=== PATIENT | female | born 1980 ===

== ENCOUNTER 2017-10-21 12:22 | Emergency (ER) | payer MEDICAID ==
[2017-10-21 12:52] VITALS: BP 104/71; PULSE 70; RESP 16; TEMP 98.6; O2SAT 100
--- NOTE | 2017-10-21 13:37 | ED PDOC ---
HPI: Female Pain Time Seen by Provider: 10/21/17 12:37 Chief Complaint (Nursing): Abdominal Pain Chief Complaint (Provider): demise History Per: Patient Additional Complaint(s): 37 yo female, no PMH, sent to ED by Dr Hough for evaluation of possible demise. Patient is approximately 10 weeks , estimated by dates. OBGYN unable to find heart rate this morning via Doppler. Past Medical History Reviewed: Nursing Documentation, Vital Signs Vital Signs: Last Vital Signs Temp 98.6 F 10/21/17 12:48 Pulse 70 10/21/17 12:48 Resp 16 10/21/17 12:48 BP 104/71 10/21/17 12:48 Pulse Ox 100 10/21/17 12:48 - Medical History PMH: No Chronic Diseases - Family History Family History: States: No Known Family Hx - Living Arrangements Living Arrangements: With Family - Social History Current smoker - smoking cessation education provided: No Alcohol: None Drugs: Denies - Allergies Allergies/Adverse Reactions: Allergies Allergy/AdvReac Type Severity Reaction Status Date / Time No Known Allergies Allergy Verified 10/21/17 12:48 Review of Systems ROS Statement: Except As Marked, All Systems Reviewed And Found Negative Physical Exam - Reviewed Nursing Documentation Reviewed: Yes Vital Signs Reviewed: Yes - Physical Exam Appears: Positive for: Well, Non-toxic, No Acute Distress Head Exam: Positive for: ATRAUMATIC, NORMAL INSPECTION, NORMOCEPHALIC Skin: Positive for: Normal Color, Warm, DRY Eye Exam: Positive for: EOMI, Normal appearance, PERRL ENT: Positive for: Normal ENT Inspection Neck: Positive for: Normal, Painless ROM Cardiovascular/Chest: Positive for: Regular Rate, Rhythm Respiratory: Positive for: CNT, Normal Breath Sounds Gastrointestinal/Abdominal: Positive for: Normal Exam, Bowel Sounds, Soft Back: Positive for: Normal Inspection Extremity: Positive for: Normal ROM Neurologic/Psych: Positive for: Alert, Oriented - Laboratory Results Result Diagrams: 10/21/17 14:09 - ECG O2 Sat by Pulse Oximetry: 100 Medical Decision Making Medical Decision Making: Beta 11917 IMPRESSION: Single live intrauterine gestation with mean gestational age of 5 weeks and 6 days. The estimated date of delivery by ultrasound is 06/17/2018. Blood type pending Pt educated on US results and demonstrated full understanding. Pt asking to go home, needs to pick children up from school Case discussed with Pts OB, Dr. Hough, who agreed Pt stable for discharge at this time. Disposition - Clinical Impression Clinical Impression: Threatened - Patient ED Disposition Is Patient to be Admitted: No - Disposition Disposition: Routine/Home Disposition Time: 16:26 Condition: STABLE Instructions: Threatened Miscarriage (ED) Forms: [facility] ([place]an)
[2017-10-21 14:17] LABS: HEMOGLOBIN 13.3 g/dL (12.0-16.0); MEAN CELL VOLUME 92.5 fl (81.0-99.0); MEAN CORPUSCULAR HEMOGLOBIN 30.7 pg (27.0-31.0); MEAN CORPUSCULAR HGB CONC 33.2 g/dL (33.0-37.0); RBC 4.33 Mil/uL (3.80-5.20); WHITE BLOOD COUNT 5.8 K/uL (4.8-10.8)
[2017-10-21 15:02] LABS: SQUAMOUS EPITHIAL 7 /hpf (0-5); URINE BILIRUBIN NEGATIVE (NEGATIVE); URINE BLOOD NEGATIVE (NEGATIVE); URINE CLARITY CLOUDY (Clear); URINE COLOR YELLOW (YELLOW); URINE GLUCOSE (UA) NEG (Normal); URINE LEUKOCYTE ESTERASE NEG Leu/uL (Negative); URINE NITRATE NEGATIVE (NEGATIVE); URINE PROTEIN NEGATIVE (NEGATIVE); URINE UROBILINOGEN 0.2-1.0 mg/dL (0.2-1.0)
--- NOTE | 2017-10-21 15:29 | US ---
PROCEDURE: OB Pelvic Ultrasound HISTORY: r/o demise COMPARISON: None available. FINDINGS: UTERUS: Single Live intrauterine gestation. CRL measures 0.53 cm equivalent to 6 weeks and 2 days of gestational age. Gestational sac diameter measures 1.28 cm equivalent to 5 weeks and 3 days of gestational age. age (Ultrasound estimated): 5 weeks and 6 days Date of delivery (Ultrasound estimated) : 06/17/2018 Heart rate: 108 bpm. June-gestational hemorrhage: None. Uterus measures 11.0 x 7.5 x 6.3 cm. There is a 1.2 x 1.0 x 0.7 cm posterior wall fundal fibroid. CERVIX: Long and closed. There are nabothian cysts in the cervix. RIGHT OVARY: Measures 5.8 x 4.7 x 2.8 cm. No mass. Normal flow. There is a 2.8 x 2.3 x 2.4 cm corpus luteum cyst. LEFT OVARY: Surgically absent. FREE FLUID: None. OTHER FINDINGS: None. IMPRESSION: Single live intrauterine gestation with mean gestational age of 5 weeks and 6 days. The estimated date of delivery by ultrasound is 06/17/2018.
== END 2017-10-21 16:34 | disposition home or self-care (01) ==
LOC: H.ER 12:22
DX: O20.0 Threatened abortion (principal); Z3A.10 10 weeks gestation of pregnancy

== ENCOUNTER 2018-03-20 20:36 | Emergency (ER) | payer MEDICAID, OTHER ==
[2018-03-20 21:17] VITALS: BMI 29.6
--- NOTE | 2018-03-20 22:00 | OBHP ---
Datetime: 03/20/2018 21:40 IP Adm Impression: , intrauterine ; No Active Labor IP Chief Complaint Other: Headache IP Adm Impression Other: Headache IP Admit Plan: Observation/Evaluation; Discharge home Admit Comment, IP Provider: 37yo with IUP at 28wks EDC-06/11/2018, reports to the LND c/o epi sodes of headache with some pressure and burry vision which she experienced today. She reports that t he headche has subsided but do get occasional episodes of pressure in the eyes. She denies any previo us episodes of the above. reports that patient has been working for long hours and thinks that she is not having jas ugh rest. Pt denies any vaginal bleeding or leakage of fluid. She denies any flu symptoms or cough. Denies a ny eye symptoms. PNc with Dr Leo- uncomplicated course, O; BP-114/61, HR=65 Heart: RRR Chest : CTA B/L Abd: Soft, NT,BS- present FHR- 140s, regular with moderate variabilities TOCO: None Cervix ; closed Assessment IUP at 28weeks NST reactive Headache Plan: Patient discussed with Dr Leo on phone. Plan to d/c home. F/U with Dr Wells office on Thursday. Questions from patient answered. Pelvic Type - PN: Adequate Extremities - PN: Normal Abdomen - PN: Normal Back - PN: Normal Breast - PN: Normal Lungs - PN: Normal Heart - PN: Normal Thyroid - PN: Normal Neurologic - PN: Normal HEENT - PN: Normal General - PN: Normal FHR - Baseline A Provider: 130 Membranes, Provider: Intact Contraction Comments Provider: None Gestation - Est Wks by US: 28.0 Vital Signs Provider: Reviewed IP Chief Complaint: Other NICHD Variability Prov Fetus A: Moderate 6-25bpm NICHD Accel Fetus A IP Provider: [id number] FHR Category Provider Fetus A: Category I NICHD Decel Fetus A IP Provider: None Dilatation, Provider: 0 Genitourinary Exam: Normal DTRs - PN: Normal
[2018-03-21 12:03] VITALS: BP 102/53; PULSE 77; RESP 18; TEMP 98; O2SAT 100
== END 2018-03-20 21:45 | disposition home or self-care (01) ==
LOC: H.EROB2 20:36
DX: O26.93 Pregnancy related conditions, unspecified, third trimester (principal); R51 Headache; H53.8 Other visual disturbances; Z3A.28 28 weeks gestation of pregnancy

== ENCOUNTER 2018-06-05 11:45 | Inpatient (IN) | payer OTHER ==
[2018-06-05 12:13] VITALS: BMI 29.5
[2018-06-05] MEDS ORDERED: Lactated Ringer's 1,000 ML IV ONE (12:20)
[2018-06-05] MEDS ORDERED: Oxytocin 30 UNIT 30 UNITS/500 ML BAG IV ONE ×3 (12:22→19:39)
[2018-06-05] MEDS ORDERED: OXYTOCIN/0.9 % NS 20 UNIT/1,000 ML BAG IV ONE (12:22)
[2018-06-05] MEDS ORDERED: Penicillin G Potassium 5 MU in Sodium Chloride 0.9% 50 ML IVPB ONE (13:10)
[2018-06-05 13:15] LABS: BASO % 0.6 % (0.0-2.0); EOS # 0.1 K/uL (0.0-0.7); EOS % 0.9 % (0.0-4.0); HEMOGLOBIN 12.7 g/dL (12.0-16.0); LYMPH # 1.4 K/uL (1.0-4.3); LYMPH % 20.4 % (20.0-40.0); MEAN CELL VOLUME 93.6 fl (81.0-99.0); MEAN CORPUSCULAR HEMOGLOBIN 32.5 pg (27.0-31.0); MEAN CORPUSCULAR HGB CONC 34.7 g/dL (33.0-37.0); MEAN PLATELET VOLUME 9.7 fl (7.2-11.7); MONO # 0.5 K/uL (0.0-0.8); MONO % 7.5 % (0.0-10.0); NEUT # 4.8 K/uL (1.8-7.0); NEUT % 70.6 % (50.0-75.0); RBC 3.91 Mil/uL (3.80-5.20); RED CELL DISTRIBUTION WIDTH 13.1 % (11.5-14.5); WHITE BLOOD COUNT 6.8 K/uL (4.8-10.8)
[2018-06-05] MEDS ORDERED: Penicillin G 5 Million Unit Vial IVPB ONE (14:39)
[2018-06-05] MEDS: Lactated Ringer's 1,000 ML IV SCH (14:55)
--- NOTE | 2018-06-05 19:00 | OBADHP ---
Datetime: 06/05/2018 13:35 Admit Comment, IP Provider: 37 y/o female with IUP at 39.1 wks present to [facility] w/ c/o headac he. She had a similar episode back in March associated w/ blurry vision. Pt denies any vaginal bleedin g or leakage of fluid. Endorses movement. PNC: Dr. Hough Pmh: denies Obhx: 3NSVD, 3 abortions Famhx: noncontributory Surghx: denies HomeRx: vitamins Allergies: NKDA Gen: not in acute distress Heart: RRR, S1/S2 Chest : CTA B/L Abd: Soft, NT,BS- present FHR- 140s, regular with moderate variabilities TOCO occasional Assessment and Plan IUP at 39.1 weeks GA c/o headache NST reactive GBS+ Will admit patient for IOL Cervidil 10mg VAG CBC/type and screen Penicillin G 2.5 mu and 5.0 mu ordered Can have epidural, anesthesiology consulted Pelvic Type - PN: Adequate Extremities - PN: Normal Abdomen - PN: Normal Back - PN: Normal Breast - PN: Normal Lungs - PN: Normal Heart - PN: Normal Thyroid - PN: Normal Neurologic - PN: Normal HEENT - PN: Normal General - PN: Normal FHR - Baseline A Provider: 130 Membranes, Provider: Intact Contraction Comments Provider: irregular Gestation - Est Wks by US: 39.1 IP Hx Assessment: The History has been Reviewed and is Current Vital Signs Provider: Reviewed; Within Normal Limits IP Chief Complaint: Maternal discomfort NICHD Variability Prov Fetus A: Moderate 6-25bpm NICHD Accel Fetus A IP Provider: [id number] FHR Category Provider Fetus A: Category I NICHD Decel Fetus A IP Provider: None Dilatation, Provider: 1 Effacement, Provider: 50 Station, Provider: -2 Genitourinary Exam: Not Done DTRs - PN: Normal EGA AdmitDate IP: 39.1 IP Adm Impression: Term, intrauterine IP Admit Plan: Admit to unit; Initiate labor induction protocol Datetime: 06/05/2018 12:24 Presentation-Admit: Vertex Datetime: 03/20/2018 21:40 IP Chief Complaint Other: Headache IP Adm Impression Other: Headache
[2018-06-05] MEDS ORDERED: Fentanyl/Bupivacaine HCl 250 ML EPI ONE (20:23)
[2018-06-06] MEDS: Lactated Ringer's 1,000 ML IV SCH
[2018-06-06] MEDS ORDERED: Acetaminophen-Codeine 300/30 mg Tab PO PRN ×2 (07:54→11:35)
[2018-06-06] MEDS ORDERED: OXYTOCIN/0.9 % NS 20 UNIT/1,000 ML BAG IV ONE (07:54)
[2018-06-06] MEDS ORDERED: Oxycodone/Acetaminophen 5/325 mg Tab PO PRN ×4 (07:54→11:35)
[2018-06-06] MEDS ORDERED: Benzocaine/Menthol SPRAY TOP PRN ×2 (07:54→11:35)
--- NOTE | 2018-06-06 07:54 | OBDS ---
MATERNAL INFORMATION Maternal Complications: None Provider Comments: delivery of live baby girl 9/9 clear fluid cord with 3 vessels placenta int act small perineal tear and repair with2-0 chromic LABOR SUMMARY EDC: 06/11/2018 00:00 No. Babies in Womb: 1 LABOR INFORMATION Reason for Induction: Not Applicable Cervical Ripening Agents: Cervidil Steroids Given: None Reason Steroids Not Administered: Not Applicable MEMBRANES Membranes Rupture Method: Artificial Rupture of Membranes: 06/06/2018 06:49 Amniotic Fluid Color: Clear Amniotic Fluid Amount: Moderate Amniotic Fluid Odor: Normal VAGINAL DELIVERY Episiotomy: None Laceration Extension: N/A Laceration Type: Perineal Laceration Repair Note: repair of live baby girl 9/9 clear fluid cord with 3 vessels placenta intact Count Comment: correct PRESENTATION/POSITION BABY A Presentation: Cephalic
[2018-06-06] MEDS ORDERED: Influenza Vaccine (5 YR UP)/PF 60 MCG/0.5 ML SYR IM ONE (09:30)
[2018-06-07 06:33] LABS: HEMOGLOBIN 11.6 g/dL (12.0-16.0); MEAN CELL VOLUME 95.4 fl (81.0-99.0); MEAN CORPUSCULAR HGB CONC 33.6 g/dL (33.0-37.0); RBC 3.63 Mil/uL (3.80-5.20); WHITE BLOOD COUNT 9.1 K/uL (4.8-10.8)
--- NOTE | 2018-06-07 08:12 | OBPPN ---
Datetime: 06/07/2018 08:08 PP Pain Prov: Within normal limits PP Nausea Prov: Denies PP Flatus Prov: Yes PP BM Prov: No PP Breasts Prov: Normal PP Heart Prov: Normal PP Lungs Prov: Normal PP Abdomen/Uterus Prov: Normal PP Lochia Prov: Normal PP Vulva/Perineum Prov: Normal PP CVA Tenderness Prov: Normal PP Extremities Prov: Normal PP Progress Prov: Normal PP Impression Prov: Normal progression PP Plan Prov: Continue present management PP Progress Note Prov: stable ppd1 no complaints today ,continue presentr care IP PP Procedures: None Vital Signs Provider PP: Reviewed; Within Normal Limits
[2018-06-07 08:42] LABS: RUBELLA AB (IGG) 7.26 index
[2018-06-07] MEDS ORDERED: Influenza Vaccine (5 YR UP)/PF 60 MCG/0.5 ML SYR IM ONE (16:19)
--- NOTE | 2018-06-08 09:36 | OBPPN ---
Datetime: 06/08/2018 09:33 PP Pain Prov: Within normal limits PP Nausea Prov: Denies PP Flatus Prov: Yes PP BM Prov: Yes PP Breasts Prov: Normal PP Heart Prov: Normal PP Lungs Prov: Normal PP Abdomen/Uterus Prov: Normal PP Lochia Prov: Normal PP Vulva/Perineum Prov: Normal PP CVA Tenderness Prov: Normal PP Extremities Prov: Normal PP Progress Prov: Normal PP Impression Prov: Normal progression PP Plan Prov: Continue present management PP Progress Note Prov: stable ppd2 no complaints no complaints today IP PP Procedures: None
--- NOTE | 2018-06-08 09:39 | OBDCSUM ---
Datetime: 06/08/2018 09:35 Discharged to, Provider: Home Follow up at, Provider: Disch Instr Activity: Normal activity; Bedrest; May be up to bathroom; May be up for meals; May Show er Disch Instr Diet: Regular Discharge Instructions, Provider: Routine instructions given Follow up in weeks, Provider: 5-6 weeks in office Disch Referrals: None Disch Activity Restrictions: No exercising; No lifting; No driving; Minimize walking; Minimize stair -climbing; No sexual activity; Nothing in vagina - [place], tampons, douche Contraception after Delivery: Undecided
[2018-06-08 16:04] VITALS: BP 110/61; PULSE 78; RESP 20; TEMP 98.6; O2SAT 100
== END 2018-06-08 11:55 | disposition home or self-care (01) | DRG 373 ==
LOC: H.EROB2 11:45 → H.L&D 11:46 → H.EROB2 12:20 → H.L&D 12:21 → H.OB/GYN 06-06 11:44
PROVIDERS: ADMIT Specialist; ATTEND Specialist
PROC: 4A1HXCZ Monitoring of Products of Conception, Cardiac Rate, External Approach (ICD-10-PCS; 2018-06-05)
PROC: 10E0XZZ Delivery of Products of Conception, External Approach (ICD-10-PCS; principal; 2018-06-06)
PROC: 0HQ9XZZ Repair Perineum Skin, External Approach (ICD-10-PCS; 2018-06-06)
PROC: 10907ZC Drainage of Amniotic Fluid, Therapeutic from Products of Conception, Via Natural or Artificial Opening (ICD-10-PCS; 2018-06-06)
PROC: 3E02340 Introduction of Influenza Vaccine into Muscle, Percutaneous Approach (ICD-10-PCS; 2018-06-07)
DX: O70.0 First degree perineal laceration during delivery (principal); O99.824 Streptococcus B carrier state complicating childbirth; Z37.0 Single live birth; Z3A.39 39 weeks gestation of pregnancy; O09.523 Supervision of elderly multigravida, third trimester; Z23 Encounter for immunization